=== PATIENT | female | born 2000 | race Caucasian/White ===

== ENCOUNTER 2025-02-08 04:55 | Emergency (ER) | payer OTHER ==
[~2025-02-08] VITALS: Ht 147.3 cm; Wt 75.7 kg
[~2025-02-08 04:55] MED LIST: NITR100C3 PO
[2025-02-08 06:32] LABS: BASO # 0.1 10^3/uL (0.0-0.2); BASO % 0.6 % (0.0-1.0); EOS # 0.0 10^3/uL (0.0-0.5); EOS % 0.1 % (0.0-3.0); LYMPH # 1.1 10^3/uL (1.5-5.0); LYMPH % 13.1 % (24.0-44.0); MONO # 0.4 10^3/uL (0.0-0.8); MONO % 4.9 % (2.0-8.0); NEUTROPHILS # 7.0 10^3/uL (1.5-8.5); NEUTROPHILS % 81.0 % (36.0-66.0); PLATELET COUNT, AUTOMATED 385 10^3/uL (150-450)
[2025-02-08 06:44] LABS: KETONE, URINE AUTO RFX 1+ mg/dL (NEGATIVE); LEUKOCYTE ESTERASE UR AUTO RFX NEGATIVE (NEGATIVE); MUCUS, URINE RFX LARGE (NEGATIVE); NITRITE, URINE AUTO RFX NEGATIVE (NEGATIVE); RBC, URINE AUTO RFX TNTC /HPF (0-3); SQUAM EPITHELIAL CELL UR AURFX 8 /HPF (0-6); WBC, URINE AUTO RFX 2 /HPF (0-3)
[2025-02-08 07:05] LABS: ALT/SGPT 17 U/L (7.0-40); AST/SGOT 17 U/L (<34); CALCIUM LEVEL 9.3 MG/DL (8.5-10.1); CARBON DIOXIDE LEVEL 25 MMOL/L (20-31); CHLORIDE LEVEL 104 MMOL/L (98-107); CREATININE FOR GFR 0.67 MG/DL (0.55-1.30); GLOMERULAR FILTRATION RATE > 90.0 (>60); POTASSIUM SERUM 4.2 MMOL/L (3.5-5.1); SODIUM LEVEL 141 MMOL/L (136-145)
[2025-02-08] MEDS: KETOROLAC 30 MG/ML 1 ML VIAL IV ONE (07:41)
[2025-02-08 07:47] LABS: HCG, SERUM QUALITATIVE NEGATIVE (NEGATIVE)
[2025-02-08] MEDS ORDERED: KETO-204 PO (08:34)
[2025-02-08] MEDS ORDERED: PERC5TAB12 PO (08:34)
[2025-02-08] MEDS ORDERED: TAMS-18 PO (08:34)
[2025-02-08 08:39] VITALS: BP 110/62; TEMP 97; O2SAT 100
== END 2025-02-08 08:47 | disposition home or self-care (01) ==
LOC: M ED 04:55
DX: N20.1 Calculus of ureter (principal); Z79.899 Other long term (current) drug therapy; Z79.2 Long term (current) use of antibiotics; Z91.030 Bee allergy status
CPT/HCPCS: 74176; 80048; 80076; 81001; 83690; 84703; 85025; 93041; 96374; 99284; J1885

== ENCOUNTER → 2025-03-27 | Outpatient (REF) | payer OTHER ==
[~2025-03-27] MED LIST changes: +KETO-204 PO; +PERC5TAB12 PO; +TAMS-18 PO
== END ==
LOC: M LAB REF 11:31 → EEVIPCON 11:31
PROVIDERS: ATTEND Physician Assistant
DX: R30.0 Dysuria (principal)